=== PATIENT | female | born 1995 | race Caucasian/White ===

== ENCOUNTER 2023-07-29 19:05 | Inpatient (IN) | payer OTHER, SELFPAY ==
[2023-07-29 19:29] VITALS: PULSE 117; O2SAT 100
[2023-07-29 19:30] VITALS: BP 135/87; PULSE 103; RESP 18; TEMP 36.4
[2023-07-29 19:42] VITALS: BMI 40.8
[2023-07-29] MEDS: 0.9% Saline Lock 10 ML Syringe IV (20:05)
[2023-07-29 20:30] LABS: Absolute Lymphocyte Count 2.54 X10^3/uL (0.83-4.51); Absolute Neutrophil Count 8.6 X10^3/uL (2.0-7.7); Basophil# 0.05 X10^3/uL; Basophil% 0.4 % (0-1); Eosinophil# 0.27 X10^3/uL; Eosinophils% 2.1 % (0-5); Hematocrit 31.9 % (37-47); Hemoglobin 10.2 g/dL (12.0-15.0); Lymphocyte # 2.54 X10^3/ul (0.83-4.51); Lymphocyte % 19.8 % (19-41); Mean Corpuscular Hgb 27.6 pg (27.0-32.0); Mean Corpuscular Volume 86.4 fL (81-99); Mean Platelet Vol. 11.5 fl (6.2-12.0); Monocyte# 1.24 X10^3/uL; Monocyte% 9.7 % (0-10); NRBC Flagged by Analyzer 0 % (0-5); Neutrophil # 8.61 X10^3/uL (2.7-7.7); Neutrophil % 67.3 % (47-70); Platelet Count 296 K/mm3 (150-450); RBC Distribution Width CV 13.6 % (11.6-14.6); RBC Distribution Width SD 42.3 fl (35.1-43.9); Red Blood Count 3.69 M/mm3 (4.2-5.4); White Blood Count 12.8 K/mm3 (4.4-11.0)
[2023-07-29] MEDS: miSOPROStol 25 MCG TABLET PO (20:34)
[2023-07-29 21:01] LABS: Syphilis Antibodies Non-reactive
--- NOTE | 2023-07-29 21:06 | PCM.HP.OB ---
HPI - General General Date of Admission: 07/29/23 HPI Narrative DIAZ NANCE, is a 27 F who presents for elective induction of labor. Maternal Data Information VALENCIA Calculator Estimated Delivery Date Method Current WG Current Estimate 08/06/23 Manual 38w 6d PFSH PFSH Medical History (Updated 07/29/23 @ 21:10 by Antoinette Bell CNM) Anxiety Asthma Depression Panic disorder Rheumatoid arthritis Home Medications albuterol sulfate 90 mcg/actuation aerosol inhaler 1 puff inhalation asthma 07/29/23 [History Last Taken Unknown] aspirin 81 mg chewable tablet 2 tab PO DAILY 07/29/23 [History Last Taken 07/28/23] budesonide-formoterol HFA 160 mcg-4.5 mcg/actuation aerosol inhaler 2 puff inhalation BID asthma 07/29/23 [History Last Taken 07/29/23] cetirizine 10 mg tablet (24Hour Allergy) 10 mg PO DAILY PRN allergies 07/29/23 [History Last Taken 07/28/23] pantoprazole 40 mg tablet,delayed release 40 mg PO DAILY acid reflux 07/29/23 [History Last Taken 07/28/23] Allergy/AdvReac Type Severity Reaction Status Date / Time Penicillins Allergy Mild Swelling Verified 07/29/23 19:49 Surgical History (Updated 07/29/23 @ 20:41 by Geno Coronado) Hx of cholecystectomy Social History Smoking Status: Never smoker History Elective abortions Hx Para 0 Spontaneous abortions Hx # Term Pregnancies Ectopic pregnancies Hx # Pregnancies Multiple births # of living children NST FHR Rate Baby A Baseline: 140 Variability:: Moderate Accelerations:: 15 x 15 Decelerations:: None NST Reactive:: Yes FHR Category:: Category I Uterine Activity:: Irritability ROS Eyes Eyes: Denies blurry vision, change in vision or spots in vision ENT HEENT: Denies dizziness or headache(s) Cardiovascular Cardiovascular: Denies abdominal pain, chest pain or dyspnea Respiratory/Chest Respiratory/Chest: Denies cough, dyspnea, shortness of breath at rest or shortness of breath with exertion Gastrointestinal Gastrointestinal: Denies abdominal pain, diarrhea or vomiting Genitourinary Genitourinary: Denies change in urinary stream, difficulty urinating or dysuria Musculoskeletal Musculoskeletal: Reports none Integumentary Integumentary: Denies rash Neurologic Neurologic: Denies dizziness, headache(s), memory loss or weakness Psychiatric Psychiatric: Reports none Vital Signs Vital Signs Vital Signs: 07/29/23 19:30 07/29/23 19:30 07/29/23 19:29 Temperature Temperature Source Pulse Rate 103 H 117 H Respiratory Rate Blood Pressure 135/87 H BP Systolic 135 BP Diastolic 87 Pulse Ox 07/29/23 19:29 07/29/23 19:30 07/29/23 19:30 Temperature Temperature Source Temporal Pulse Rate Respiratory Rate 18 Blood Pressure BP Systolic BP Diastolic Pulse Ox 100 07/29/23 19:30 Temperature 97.6 F L Temperature Source Pulse Rate Respiratory Rate Blood Pressure BP Systolic BP Diastolic Pulse Ox Weight Weight: 230 lb 12.8 oz Body Mass Index (BMI) 40.8 Physical Exam Const alert, oriented x3 and no apparent distress General Appearance: cooperative Orientation / Consciousness: awake Exam Limitations: no limitations HEENT normocephalic Head and Scalp: normal to inspection Eyes General Eye: normal appearance of both eyes Neck full ROM and no lymphadenopathy Lymph Lymphatic: no lymphadenopathy noted Chest inspection of chest normal Resp normal respiratory effort, normal air movement and clear to auscultation bilaterally Effort and Inspection: able to speak in complete sentences and symmetric chest movement Cardio regular rate and regular rhythm GI normal to inspection, nondistended, normoactive bowel sounds Back/Spine normal ROM Extremity full ROM and no calf tenderness Skin no rashes or lesions noted General Skin Exam: no breakdown Neuro oriented x3 and CN's II-XII intact bilaterally Psych mental status grossly normal and thought process normal Labs Labs Labs: Blood Type Pending Antibody Screen Pending Hct 31.9 % (37-47) L Hgb 10.2 g/dL (12.0-15.0) L Syphilis Total Ab Non-reactive GBS POSITIVE Assessment & Plan (1) Encounter for elective induction of labor: (2) 39 weeks gestation of : (3) Asthma affecting in third trimester: (4) Penicillin allergy: (5) Positive GBS test: (6) Obesity affecting : (7) Acid reflux: PLAN: Plan Admit to labor and delivery Routine labs Start IV and run fluids per orders GBS positive with confirmed PCN allergy- start Vancomycin IV Cytotec 25 mcg PO every 4 hours with maximum of 6 doses Anticipate placement of ayala bulb in AM Dr. Dillon notified of admission and is collaborating physician
[2023-07-29] MEDS: CHLORHEXIDINE GLUC 2% CLOTH 1 EACH TOWELETTE TOPICAL (22:24)
[2023-07-29] MEDS: BUDESONIDE/FORMOTEROL 160/4.5 1 PUFF INHALER 2 PUFF INHALATION (22:24)
[2023-07-30] VITALS (20 sets, daily range): BP systolic 108–130; BP diastolic 57–78; PULSE 82–109; RESP 16–20; TEMP 36.3–37.3; O2SAT 97–100
[2023-07-30] MEDS: miSOPROStol 25 MCG TABLET PO ×2 (00:36→04:40)
[2023-07-30] MEDS: 0.9% Normal Saline Single 100 ML IV.SOLN. INTRA-UTER (06:54)
--- NOTE | 2023-07-30 07:16 | PN.OBGYN_ITS ---
Subjective Subjective Patient seen at bedside. Slept off and on last night. Denies any pain. Objective Data Objective Data Vital Signs: Vital Signs Temp Pulse Resp BP Pulse Ox 98.5 F 85 16 119/65 99 07/30/23 04:32 07/30/23 04:32 07/30/23 04:32 07/30/23 04:32 07/30/23 04:32 Weight: 230 lb 12.8 oz Body Mass Index (BMI) 40.8 Intake & Output: Intake and Output for Last 24 Hours 07/28/23 07/29/23 07/30/23 23:59 23:59 23:59 Intake Total 100 / 300 200 / 200 Output Total 300 / 800 1250 / 1250 Balance -200 / -500 -1050 / -1050 Lab / Micro Data 07/29/23 20:05 Labs: Laboratory Results - last 24 hr 07/29/23 20:00: Blood Type A POSITIVE, Antibody Screen NEGATIVE 07/29/23 20:05: WBC 12.8 H, RBC 3.69 L, Hgb 10.2 L, Hct 31.9 L, MCV 86.4, MCH 27.6, MCHC 32.0, RDW Std Deviation 42.3, RDW Coeff of Kiarra 13.6, Plt Count 296, MPV 11.5, Immature Gran % (Auto) 0.700, Neut % (Auto) 67.3, Lymph % (Auto) 19.8, [place] % (Auto) 9.7, Eos % (Auto) 2.1, Baso % (Auto) 0.4, Absolute Neuts (auto) 8.6 H, Absolute Lymphs (auto) 2.54, Nucleated RBC % 0, Syphilis Total Ab Non- reactive NST FHR Rate Baby A Baseline: 135 Variability:: Moderate Accelerations:: 15 x 15 Decelerations:: None NST Reactive:: Yes FHR Category:: Category I Uterine Activity:: Irregular Assessment & Plan (1) 39 weeks gestation of : (2) Encounter for elective induction of labor: (3) Asthma affecting in third trimester: (4) Penicillin allergy: (5) Positive GBS test: (6) Obesity affecting : PLAN: Plan CE /-3 Cat. 1 tracing/ NST reactive- [place] Conner bulb placed and balloon filled with 30 cc N/S Next dose of Cytotec 25 mcg PO due in 2 hours- will reevaluate Eat light breakfast Pain medications if indicated
[2023-07-30] MEDS: 0.9% Saline Lock 10 ML Syringe IV (08:08)
[2023-07-30] MEDS: Vancomycin HCl 2,000 MG in 0.9% Normal Saline (500mL Bag) 500 ML 250 MG IV ×2 (08:08→16:11)
[2023-07-30] MEDS: BUDESONIDE/FORMOTEROL 160/4.5 1 PUFF INHALER 2 PUFF INHALATION ×2 (08:23→22:26)
[2023-07-30] MEDS: Oxytocin 15 Units/NS 250ml 15 UNITS/250 ML IV.SOLN 2 UNITS IV (09:10)
[2023-07-30] MEDS: CHLORHEXIDINE GLUC 2% CLOTH 1 EACH TOWELETTE TOPICAL ×2 (09:10→20:54)
[2023-07-30] MEDS: Lactated Ringers 1,000 ML 50 ML IV (10:18)
[2023-07-30] MEDS: LACTATED RINGERS 500 ML 999 ML IV (11:25)
--- NOTE | 2023-07-30 18:16 | PN.OBGYN_ITS ---
Subjective Subjective Resting comfortably in bed. Partner at bedside. Objective Data Objective Data Vital Signs: Vital Signs Temp Pulse Resp BP Pulse Ox 98.3 F 100 16 116/66 99 07/30/23 17:06 07/30/23 17:06 07/30/23 17:06 07/30/23 17:06 07/30/23 17:06 Weight: 230 lb 12.8 oz Body Mass Index (BMI) 40.8 Intake & Output: Intake and Output for Last 24 Hours 07/28/23 07/29/23 07/30/23 23:59 23:59 23:59 Intake Total 100 / 300 1568.93 / 1568.93 Output Total 300 / 800 2700 / 2700 Balance -200 / -500 -1131.07 / -1131.07 Lab / Micro Data 07/29/23 20:05 Labs: Laboratory Results - last 24 hr 07/29/23 20:00: Blood Type A POSITIVE, Antibody Screen NEGATIVE 07/29/23 20:05: WBC 12.8 H, RBC 3.69 L, Hgb 10.2 L, Hct 31.9 L, MCV 86.4, MCH 27.6, MCHC 32.0, RDW Std Deviation 42.3, RDW Coeff of Kiarra 13.6, Plt Count 296, MPV 11.5, Immature Gran % (Auto) 0.700, Neut % (Auto) 67.3, Lymph % (Auto) 19.8, [place] % (Auto) 9.7, Eos % (Auto) 2.1, Baso % (Auto) 0.4, Absolute Neuts (auto) 8.6 H, Absolute Lymphs (auto) 2.54, Nucleated RBC % 0, Syphilis Total Ab Non- reactive Physical Exam Manual OB Exam: presentation cephalic, dilated 4.5 cm, effaced 60% and station -2 Amniotic Fluid: clear amniotic fluid NST FHR Rate Baby A Baseline: 145 Variability:: Moderate Accelerations:: 15 x 15 Decelerations:: Late (after cervical exam) and Variable FHR Category:: Category II Uterine Activity:: Every 2-4 minutes, mild to moderate Assessment & Plan (1) Obesity affecting : (2) 39 weeks gestation of : (3) Encounter for elective induction of labor: PLAN: Plan 1) Category 2 FHT, continue to monitor 2) AROM after indepth discussion, all questions answered and tolerated well 3) Continue Pitocin per policy 4) Continue GBS prophylaxis 5) collaborative physician, notified of patient status and of above assessment and plan
[2023-07-30] MEDS: Ondansetron 4 MG/2 ML Vial IV (22:24)
[2023-07-31] VITALS (51 sets, daily range): BP systolic 90–145; BP diastolic 46–92; PULSE 87–180; RESP 16–20; TEMP 36.3–37.4; O2SAT 72–100
[2023-07-31] MEDS: LACTATED RINGERS 500 ML 999 ML IV ×3 (00:25→08:05)
[2023-07-31] MEDS: Vancomycin HCl 2,000 MG in 0.9% Normal Saline (500mL Bag) 500 ML 250 MG IV (00:58)
[2023-07-31] MEDS: fentaNYL-bupivacaine (epidural) 100 ML BAG EPIDURAL (02:30)
--- NOTE | 2023-07-31 03:00 | PCM.PN.OB ---
Subjective Subjective Resting in bed sleeping. at bedside. Comfortable with epidural Objective Data Objective Data Vital Signs: Vital Signs Temp Pulse Resp BP Pulse Ox 98.7 F 95 18 117/58 L 96 07/31/23 02:44 07/31/23 02:55 07/31/23 02:48 07/31/23 02:53 07/31/23 02:55 Weight: 230 lb 12.8 oz Body Mass Index (BMI) 40.8 Intake & Output: Intake and Output for Last 24 Hours 07/29/23 07/30/23 07/31/23 23:59 23:59 23:59 Intake Total 100 / 300 2185.06 / 2185.06 877.35 / 877.35 Output Total 300 / 800 4300 / 4300 325 / 325 Balance -200 / -500 -2114.94 / -2114.94 552.35 / 552.35 Lab / Micro Data 07/29/23 20:05 Physical Exam Manual OB Exam: dilated 4.5, effaced 70 and station -1 NST FHR Rate Baby A Baseline: 145 Accelerations:: 15 x 15 Decelerations:: None FHR Category:: Category I Uterine Activity:: every 2-3 minutes, moderate Assessment & Plan (1) Encounter for elective induction of labor: PLAN: Plan 1) Labor protracted. Epidural for pain management. Will recheck 1 hour after epidural placement. 2) Category 1 FHT 3) Pitocin decreased by half due to tachysystole. 4) Positional changes 5) Continue with active management
--- NOTE | 2023-07-31 05:33 | PCM.PN.OB ---
Subjective Subjective Resting in bed, awake. Comfortable with epidural. at bedside. Objective Data Objective Data Vital Signs: Vital Signs Temp Pulse Resp BP Pulse Ox 97.9 F 109 H 18 106/50 L 99 07/31/23 04:23 07/31/23 04:23 07/31/23 04:23 07/31/23 04:23 07/31/23 04:23 Weight: 230 lb 12.8 oz Body Mass Index (BMI) 40.8 Intake & Output: Intake and Output for Last 24 Hours 07/29/23 07/30/23 07/31/23 23:59 23:59 23:59 Intake Total 100 / 300 2185.06 / 2185.06 1897.16 / 1897.16 Output Total 300 / 800 4300 / 4300 725 / 725 Balance -200 / -500 -2114.94 / -2114.94 1172.16 / 1172.16 Lab / Micro Data 07/29/23 20:05 Physical Exam Manual OB Exam: presentation cephalic, dilated 5, effaced 80, station -1 and other caput NST FHR Rate Baby A Baseline: 145 Variability:: Moderate Accelerations:: 15 x 15 Decelerations:: None FHR Category:: Category I Uterine Activity:: every 3-4 minutes. MVU 100 Assessment & Plan (1) Encounter for elective induction of labor: PLAN: Plan 1) Inadequate contractions with limited cervical change. Discussed with patient Rupture of membranes with inadequate contractions and no change in 6 hours. Discussed option and recommendation for section at this time. She declines and would like to continue labor and reassess. 2) Pitocin break and then 1gram of tums. Restart pitocin and see if improvement in contractions. 3) Epidural for pain management effective 4) collaborative physician and reviewed above assessment, plan, and patient status. Agrees with plan at this time. 5) Continue with vancomycin for GBS prophylaxis.
[2023-07-31] MEDS: Lactated Ringers 1,000 ML 200 ML IV (05:38)
[2023-07-31] MEDS: Calcium Carbonate 500 MG Tablet 1000 MG PO (06:36)
[2023-07-31] MEDS: Oxytocin 15 Units/NS 250ml 15 UNITS/250 ML IV.SOLN 6 UNITS IV (07:48)
[2023-07-31] MEDS: Acetaminophen 500 MG Tablet PO (08:28)
--- NOTE | 2023-07-31 08:45 | PCM.PN.OB ---
Subjective Subjective Elective induction on 07/28. S/p Conner bulb, Cytotec and Pitocin. Has not made cervical change since yesterday. Very high station. Cat I fhr. Mild tachycardia but reactive. And responds to IV fluid bolus. Discussed with patient. Primary c/s for failure to progress. Reviewed r/b/a. All questions answered. Patient agreeable. PCN allergy. Vague reaction but involves hives and swelling. Objective Data Objective Data Vital Signs: Vital Signs Temp Pulse Resp BP Pulse Ox 99.4 F H 109 H 16 107/53 L 98 07/31/23 08:08 07/31/23 08:08 07/31/23 08:08 07/31/23 08:08 07/31/23 08:08 Weight: 104.689 kg Body Mass Index (BMI) 40.8 Intake & Output: Intake and Output for Last 24 Hours 07/29/23 07/30/23 07/31/23 23:59 23:59 23:59 Intake Total 100 / 300 2185.06 / 2185.06 2205.99 / 2205.99 Output Total 300 / 800 4300 / 4300 725 / 725 Balance -200 / -500 -2114.94 / -2114.94 1480.99 / 1480.99 Lab / Micro Data 07/29/23 20:05 Physical Exam Const alert and oriented x3 General Appearance: cooperative and comfortable HEENT normocephalic and head/scalp atraumatic Resp normal respiratory effort Manual OB Exam: dilated 4, effaced 75 and station -3 NST FHR Rate Baby A Baseline: 160 Variability:: Moderate Accelerations:: 15 x 15 Decelerations:: None NST Reactive:: Yes Assessment & Plan (1) 39 weeks gestation of : (2) Encounter for elective induction of labor: (3) Failure to progress in first stage of labor: PLAN: Primary
[2023-07-31] MEDS: BUDESONIDE/FORMOTEROL 160/4.5 1 PUFF INHALER 2 PUFF INHALATION ×2 (08:48→21:26)
[2023-07-31] MEDS: Ondansetron 4 MG/2 ML Vial IV ×2 (08:54→16:08)
[2023-07-31] MEDS: Sodium Citrate/Citric Acid 30 ML UDC PO (08:54)
[2023-07-31] MEDS: Clindamycin 900 MG/50 ML BAG 75 MG IV (09:12)
[2023-07-31] MEDS: Gentamicin IV 260 MG in Dextrose 5%-Water (50mL Bag) 50 ML 100 MG IVPB (09:30)
[2023-07-31] MEDS: Azithromycin 500 MG in Dextrose 5%-Water (250mL Bag) 250 ML 250 MG IV (10:00)
--- NOTE | 2023-07-31 10:05 | OP.PCM_ITS ---
Assessment & Plan (1) Failure to progress in first stage of labor: Maternal Data Information VALENCIA Calculator Estimated Delivery Date Method Current WG Current Estimate 08/06/23 Manual 39w 1d Final VALENCIA: 08/06/23 Gestational age: 39+1 Details Operative Information Date of Procedure: 07/31/23 Pre-Operative Diagnosis: Failure to progress term Post-Operative Diagnosis: Failure to progress Indications for : Failure to Progress Indications Narrative: Elective induction of labor. Conner bulb, Cytotec and Pitocin but did not progress past 4 cm Classification: ADDIE Procedure Type: low transverse feed mill lab technician #1: Nicko Silverman Type of Anesthesia: Epidural Anesthesiologist: Jl Mauricio Antibiotic Given: Clindamycin 600mg IV x1 and Gentamicin 1.5mg/kg IV x1 and Zithromax 500 mg/5 mL X1 Drain: Conner to straight drain Estimated Blood Loss: 300 cc Procedure Start Time: 09:28 Procedure Stop Time: 10:04 Time of Delivery: 09:35 Findings Description of Procedure: Patient taken to the OR with epidural in place. She was placed in dorsal supine position with a leftward tilt. A Conner was placed. She was prepped and draped in a sterile fashion. Anesthesia was verified with an Allis clamp. A Pfannenstiel incision was made with a scalp and carried down to the underlying fascia with the Bovie. The fascia was incised and extended laterally with scissors. The fascia was dissected off the muscles and the muscles divided in the midline. The peritoneum was entered bluntly. A bladder blade was placed and a bladder flap then created. A low transverse incision was made in the uterus and extended laterally. The head was elevated and delivered without difficulty. The cried on delivery. Delayed cord clamping was performed and the infant handed to the OR staff. The placenta was removed with gentle traction. The uterus was exteriorized and cleared of all clot and debris. The incision was repaired with 0-Vicryl x 2. The uterus was returned to the abdomen. The gutters cleared of clot and debris. The peritoneum was closed with 2-0 Monocryl. The fascia was closed with 0-Vicryl. The incision was irrigated. The sub-q was reapproximated with Monocryl and the skin closed with 4-Vicryl. All sponge, lap and instrument counts were correct. Presentation: Positive for Vertex Amniotic Membrane Rupture Type: Artificial Amniotic Fluid Description: Clear Placenta Disposition: [facility] Cord Vessel Description: 3 Vessels Cord Entanglement: None Infant A Gender: Female (1 minute): 9 (5 minute): 9 Delayed Cord Clamping: Yes Complications Risks of Surgery Discussed w/Patient: Bleeding, Anesthesia Risks, Infection and Injury to surrounding structure(s) including bowel and bladder
[2023-07-31] MEDS: Oxytocin 15 Units/NS 250ml 15 UNITS/250 ML IV.SOLN 83 UNITS IV (11:45)
[2023-07-31] MEDS: Lactated Ringers 1,000 ML 100 ML IV (12:10)
[2023-07-31] MEDS: Ketorolac 30 MG/ML Syringe IV ×2 (12:59→18:14)
[2023-07-31] MEDS: 0.9% Saline Lock 10 ML Syringe IV ×3 (12:59→18:15)
--- NOTE | 2023-07-31 13:12 | NURSING ---
Epidural catheter removed at this time per policy with blue tip intact.
[2023-07-31] MEDS: Acetaminophen 500 MG Tablet 1000 MG PO ×2 (14:49→20:12)
[2023-07-31] MEDS: Enoxaparin 40 MG/0.4 ML Syringe SC (21:26)
[2023-08-01] VITALS (7 sets, daily range): BP systolic 103–115; BP diastolic 63–74; PULSE 78–95; RESP 16–20; TEMP 36.1–36.9; O2SAT 97–100
[2023-08-01] MEDS: Ketorolac 30 MG/ML Syringe IV ×2 (00:47→05:34)
[2023-08-01] MEDS: 0.9% Saline Lock 10 ML Syringe IV ×2 (00:47→05:35)
[2023-08-01] MEDS: Acetaminophen 500 MG Tablet 1000 MG PO ×4 (02:29→21:10)
--- NOTE | 2023-08-01 02:31 | NURSING ---
RN notes pt had pulse oximeter on incorrectly. Parameters for alarm changed from 90% to <95%.
[2023-08-01 05:56] LABS: Hematocrit 21.7 % (37-47); Hemoglobin 6.9 g/dL (12.0-15.0); Mean Corp Hgb Conc 31.8 g/dL (32-36); Mean Corpuscular Hgb 27.3 pg (27.0-32.0); Mean Corpuscular Volume 85.8 fL (81-99); Platelet Count 211 K/mm3 (150-450); RBC Distribution Width SD 43.6 fl (35.1-43.9); Red Blood Count 2.53 M/mm3 (4.2-5.4); White Blood Count 12.2 K/mm3 (4.4-11.0)
[2023-08-01] MEDS: Sodium Ferric Gluconat 250 MG in 0.9% Normal Saline 250 ML 135 MG IV (06:52)
[2023-08-01] MEDS: Senna/Docusate Sodium 1 Tablet PO (09:14)
[2023-08-01] MEDS: Enoxaparin 40 MG/0.4 ML Syringe SC ×2 (09:14→22:06)
[2023-08-01] MEDS: BUDESONIDE/FORMOTEROL 160/4.5 1 PUFF INHALER 2 PUFF INHALATION ×2 (09:14→21:10)
[2023-08-01] MEDS: Ibuprofen 600 MG Tablet PO ×3 (11:34→23:56)
--- NOTE | 2023-08-01 14:03 | CASEMGMT ---
Social Work Assessment Labor and Delivery Unit Patient Address:[address] [place], [place] [id number] Phone number: [phone] Date of Referral: 07/29/23 Time of Referral:? 2043 Referred By: Antoinette Bell Date of Intervention: ??08/01/23 Time of Intervention:? 1200 Reason for Referral:? anxiety, depression, step parent with drug/ alcohol problem Sw completed chart review and acknowledges social work consult. Sw presented to bedside and introduced self to mother of baby (MOB- Gina) and father of baby (FOB- Stone). Sw explained reason for sw involvement and role during hospitalization. Sw completed psychosocial assessment and asked MOB to complete [place] Depression Scale. FOB left room momentarily at which point sw assessed for safety. History obtained from: medical records, MOB and FOB Household composition: Currently residing in the family home is MOB, FOTulio and now baby when ready for dc. Parents deny any issues or concerns with their housing at this time. Patient's parent/guardian status:? ?PAOLA states that she and FOB met while attending college together at [employer]. PAOLA states that they have been together for 8 year. While meeting with privately, she denies domestic violence or intimate partner violence. Medical History: ?PAOLA is 27 year old female who is 1, para 0- now 1 following labor and delivery of . PAOLA received routine care during with [facility]. PAOLA presented to hospital on 07/29/23 in labor and ended up requiring on 07/31/23 at 38 weeks gestation. Baby girl, named Arleen Mir, was born weighing 8lb 5oz and her apgars were 9 and 9 at one and five minutes of life, respectfully. PAOLA states that she is breast feeding and this is going okay, she has plans to follow up with outpatient . PAOLA states that baby will be followed by Dr. Tafoya for pediatrics. Educational Status:? Both parents graduated high school and obtained Bachelor's degrees. No concerns with reading, learning or comprehension. Financial Status: Both parents are gainfully employed outside of the home. 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 Infant Supplies:?? Parents have obtained all necessary baby supplies, including: car seat, safe sleep space, clothes, diapers and wipes. Childcare/Caregiver(s):?MOB will be the primary caregiver to baby along with FOB when he is not at work. Transportation:?? No transportation barriers, both parents have their drivers license and reliable means of transportation. Programs/Agencies Involved: ???Parents deny any linkage to community resources that assist them financially. Children Services/Legal Issues:?No prior involvement, no issues or concerns warranting referral to be made at this time. Behavioral Health Issues: ??Mental Health History:??FOB denies mental health history. MOB states that she has been diagnosed with anxiety, depression and does have history of panic attacks. PAOLA reports that her mental health symptoms started when she was in college. MOB states that while in college she was connected to counseling supports and was temporarily prescribed medications. MOB states that she feels as though she has done really well managing her mental health throughout her . MOB states that she is aware and familiar with signs and symptoms of baby blues and depression and anxiety to be on the lookout for. PAOLA completed [place] Depression Scale and her score was 4. Sw provided education and support to MOB. ? Substance Use History:?MOB denies substance use prior to and during . ? Family History:??MOB states that her step father is an alcoholic and is not involved. ??? Drug Screens: ??No drug screens observed during chart review. Family/Social Stressors:?Parents deny any issues, concerns or stressors at this time. Support Systems: MOB identifies that her mom and her sister are her biggest supports at this time, along with FOB. Depression/Shaken Baby/Safe Sleeping:? Sw educated parents regarding signs and symptoms of baby blues and depression and anxiety. MOB and FOB expressed understanding. FOB stated that he knows he would be able to recognize a change in MOB if she were to struggle. FOB states that he would know how to help and support MOB. Sw educated parents on shaken baby prevention and ABCs of safe sleep. ASSESSMENT:? MOB and baby admitted following labor and delivery of . Both parents extremely talkative and receptive to meeting with sw. Parents made and maintained eye contact during psychosocial assessment. Parents observed to provide loving and appropriate hands on care to . FOB attentive to MOB and her needs following delivery. Parents have obtained all necessary baby supplies and have natural supports in place. PLAN:? MOB and baby to be discharged when medically ready. ?No other services requested or indicated. Zhao Patel, CRIBBER, [employer]
[2023-08-01 17:39] LABS: Hematocrit 22.9 % (37-47); Hemoglobin 7.2 g/dL (12.0-15.0); Mean Corp Hgb Conc 31.4 g/dL (32-36); Mean Corpuscular Hgb 26.8 pg (27.0-32.0); Mean Corpuscular Volume 85.1 fL (81-99); Mean Platelet Vol. 11.2 fl (6.2-12.0); Platelet Count 259 K/mm3 (150-450); RBC Distribution Width CV 14.2 % (11.6-14.6); RBC Distribution Width SD 43.6 fl (35.1-43.9); Red Blood Count 2.69 M/mm3 (4.2-5.4); White Blood Count 11.8 K/mm3 (4.4-11.0)
[2023-08-02] MEDS: Acetaminophen 500 MG Tablet 1000 MG PO ×2 (02:32→08:45)
[2023-08-02 02:43] VITALS: BP 109/70; PULSE 86; RESP 18; TEMP 36.3; O2SAT 100
--- NOTE | 2023-08-02 03:16 | NURSING ---
This RN at bedside discussing importance of feeding every 2-3 hours at least as well as on demand. Patient mentioned how is eating every hour and acting like they are hungry but they really aren't. She will root around and watch to latch and then will fall asleep. She doesn't actually want it. We are going to have to just leave her in the crib to cry because we need to sleep. This RN explained cluster feeding and how it is normal and good for MOB milk supply. This RN offered support and advice on how to take turns at night infant and then fob can rock while mob sleeps and switch off. MOB reports well if she is feeding so often and not actually wanting it then she just needs to lay in the crib and scream. My sleep is more important right now. I have only slept 10 hours since sunday. This RN reinforced importance of cluster feeding and how it is normal and common for infants to eat so often and in such short spurts. Patients stance remains unchanged on multiple occasions of reinforcement.
[2023-08-02] MEDS: Ibuprofen 600 MG Tablet PO ×2 (05:24→11:59)
[2023-08-02] MEDS: 0.9% Saline Lock 10 ML Syringe IV (05:35)
[2023-08-02 05:57] LABS: Absolute Lymphocyte Count 2.31 X10^3/uL (0.83-4.51); Absolute Neutrophil Count 6.1 X10^3/uL (2.0-7.7); Basophil# 0.05 X10^3/uL; Basophil% 0.5 % (0-1); Eosinophil# 0.21 X10^3/uL; Eosinophils% 2.1 % (0-5); Hematocrit 22.9 % (37-47); Lymphocyte # 2.31 X10^3/ul (0.83-4.51); Lymphocyte % 23.5 % (19-41); Mean Corp Hgb Conc 30.6 g/dL (32-36); Mean Corpuscular Hgb 26.2 pg (27.0-32.0); Mean Corpuscular Volume 85.8 fL (81-99); Mean Platelet Vol. 10.9 fl (6.2-12.0); Monocyte# 1.07 X10^3/uL; Monocyte% 10.9 % (0-10); NRBC Flagged by Analyzer 0 % (0-5); Neutrophil # 6.09 X10^3/uL (2.7-7.7); Neutrophil % 61.9 % (47-70); Platelet Count 273 K/mm3 (150-450); RBC Distribution Width CV 14.2 % (11.6-14.6); RBC Distribution Width SD 43.8 fl (35.1-43.9); Red Blood Count 2.67 M/mm3 (4.2-5.4); White Blood Count 9.8 K/mm3 (4.4-11.0)
[2023-08-02 08:20] VITALS: BP 106/60; PULSE 88; RESP 15; TEMP 36.9
--- NOTE | 2023-08-02 08:42 | DS.PCM_ITS ---
Providers Date of Admission: 07/29/23 Primary Care Physician: Dr. Lg Stephenson MD Reason For Visit: PRIMAY Diagnosis Discharge Diagnosis (1) Failure to progress in first stage of labor: Status: Acute (2) delivery delivered: Status: Acute Code(s): O82 - Encounter for delivery without indication (3) Care and examination of lactating mother: Status: Acute Code(s): Z39.1 - Encounter for care and examination of lactating mother Plan POD 3 Primary C/S Pain control support D/C home with follow up in office next week Medications at Discharge Home Medications albuterol sulfate 90 mcg/actuation aerosol inhaler 1 puff inhalation asthma 07/29/23 aspirin 81 mg chewable tablet 2 tab PO DAILY 07/29/23 budesonide-formoterol HFA 160 mcg-4.5 mcg/actuation aerosol inhaler 2 puff inhalation BID asthma 07/29/23 cetirizine 10 mg tablet (24Hour Allergy) 10 mg PO DAILY PRN allergies 07/29/23 pantoprazole 40 mg tablet,delayed release 40 mg PO DAILY acid reflux 07/29/23 acetaminophen 500 mg tablet 1,000 mg (2 x 500 mg) PO Q6H #0 tabs 08/02/23 budesonide-formoterol HFA 160 mcg-4.5 mcg/actuation aerosol inhaler (Symbicort) 2 puff inhalation BID #0 grams 08/02/23 ibuprofen 600 mg tablet 600 mg PO Q6H #0 tabs 08/02/23 sennosides 8.6 mg-docusate sodium 50 mg tablet (Stool Softener-Stimulant Laxative) 1 - 2 tab PO DAILY #0 tabs 08/02/23 Physical Exam Narrative Patient seen at bedside. Pain is controlled. Ambulating and voiding without difficulty. Lochia is minimal. Dressing is dry and intact. Requesting discharge home today. Weight / BMI Weight Weight: 230 lb 12.8 oz Body Mass Index (BMI) 40.8 ABG / Lab / Microbiology Data 08/02/23 05:35 Laboratory: Laboratory Results - last 24 hr 08/01/23 17:25: WBC 11.8 H, RBC 2.69 L, Hgb 7.2 L, Hct 22.9 L, MCV 85.1, MCH 26 .8 L, MCHC 31.4 L, RDW Std Deviation 43.6, RDW Coeff of Kiarra 14.2, Plt Count 259, MPV 11.2 08/02/23 05:35: WBC 9.8, RBC 2.67 L, Hgb 7.0 L, Hct 22.9 L, MCV 85.8, MCH 26.2 L , MCHC 30.6 L, RDW Std Deviation 43.8, RDW Coeff of Kiarra 14.2, Plt Count 273, MPV 10.9, Immature Gran % (Auto) 1.100 H, Neut % (Auto) 61.9, Lymph % (Auto) 23.5, [place] % (Auto) 10.9 H, Eos % (Auto) 2.1, Baso % (Auto) 0.5, Absolute Neuts (auto) 6.1, Absolute Lymphs (auto) 2.31, Nucleated RBC % 0 D/C Instructions Discharge Diet: No restrictions May resume sexual activity in: 6-8 weeks Weight Bearing Status: Weight bearing as tolerated Lifting Restrictions: 20 lbs Call your doctor if your incision/area has: Continuous Slow Oozing, Increased Pain/ Swelling, Increased Redness, Foul Smelling Discharge and Swelling at the incision site Call your doctor if you observe: Fever of 101 or Higher, Inability to urinate, Using more than 1 pad per hour, Shortness of breath, Chest pain, Calf discomfort and Uncontrolled pain Remove Dressing in: 5 days Cleanse incision/area with: Soap & Water and Keep Dressing Clean & Dry Please Follow Up With: Antoinette Bell CNM When: 1 week in office for incision check or sooner if needed 6 weeks Meaningful Use Info Meaningful Use Diagnoses (Choose all that apply): None applicable Discharge Plan Admission Admit Date/Time: 07/29/23 19:05 Primary Reason for Your Visit: Labor and Delivery Attending Provider: Maida Manrique Primary Care Provider: Lg tSephenson Discharge Orders/Prescriptions Prescriptions: New acetaminophen 500 mg Tablet 1,000 mg PO Q6H Qty: 0 0RF sennosides-docusate sodium [Stool Softener-Stimulant Laxat] 8.6-50 mg Tablet 1 - 2 tab PO DAILY Qty: 0 0RF ibuprofen 600 mg Tablet 600 mg PO Q6H Qty: 0 0RF budesonide-formoterol [Symbicort] 160-4.5 mcg/actuation Hfa Aerosol Inhaler 2 puff inhalation BID Qty: 0 0RF Continued aspirin 81 mg tablet,chewable 2 tab PO DAILY pantoprazole 40 mg tablet,delayed release (DR/EC) 40 mg PO DAILY cetirizine [24Hour Allergy] 10 mg tablet 10 mg PO DAILY PRN (Reason: allergies) albuterol sulfate 90 mcg/actuation HFA aerosol inhaler 1 puff inhalation budesonide-formoterol 160-4.5 mcg/actuation HFA aerosol inhaler 2 puff inhalation BID Referrals / Follow Up: Antoinette Bell CNM [Med Staff - Adv Practice Prof] - Lg Stephenson MD [Primary Care Provider] - Disposition Disposition (needs filled in before D/C Order can be placed): Home, Self Care
[2023-08-02] MEDS: Senna/Docusate Sodium 1 Tablet PO (08:46)
[2023-08-02] MEDS: BUDESONIDE/FORMOTEROL 160/4.5 1 PUFF INHALER 2 PUFF INHALATION (08:46)
[2023-08-02] MEDS: Enoxaparin 40 MG/0.4 ML Syringe SC (11:59)
--- NOTE | 2023-08-07 13:29 | NURSING ---
Follow up phone call made Sunday08/06/2023. Patient states she is doing very well, bleeding is minimal and she is not really having any pain. Dressing on incision was removed on Sunday and incision looks good. States that her incision does not have any drainage or redness. Patient states that the is doing very well and gained 7 ounces since seen by on Sunday with the feeding plan set up by IB[facility]. Denies any difficulty with pumping or feeding . States she is feeling really good. patient states she loved her stay here at and all of the nurses were great. She loved Angela in and stated that she was so helpful.
== END 2023-08-02 12:30 | disposition home or self-care (01) | DRG 788 ==
PROVIDERS: Advanced Practice Midwife; Admitting Provider Obstetrics & Gynecology; PCP Student in an Organized Health Care Education/Training Program; Visit Provider Obstetrics & Gynecology
DX: O62.0 Primary inadequate contractions (principal); O99.214 Obesity complicating childbirth; J45.909 Unspecified asthma, uncomplicated; K21.9 Gastro-esophageal reflux disease without esophagitis; O99.62 Diseases of the digestive system complicating childbirth; Z79.82 Long term (current) use of aspirin; Z37.0 Single live birth; O99.824 Streptococcus B carrier state complicating childbirth; Z88.0 Allergy status to penicillin; Z3A.39 39 weeks gestation of pregnancy; O99.52 Diseases of the respiratory system complicating childbirth; O61.0 Failed medical induction of labor
CPT/HCPCS: 59025; 59050; 85025; 85027; 86780; 86850; 86900; 86901; 99221; J7040; J7050; J7120; A4216; G0378; J2405; J2916

== ENCOUNTER 2023-08-04 08:34 | Emergency (ER) | payer OTHER, SELFPAY ==
[2023-08-04 08:35] VITALS: BP 139/89; PULSE 101; RESP 16; TEMP 36.3; O2SAT 100; BMI 38.3
--- NOTE | 2023-08-04 09:08 | ED.RN ---
PT REPORTS THAT SHE IS CURRENTLY AND HAS AN APPT WITH THE RECORDS MANAGEMENT ANALYST THIS MORNING. NOTIFIED BY THIS RN THAT PT WAS PRESENT IN ED AND NEEDED SOME ASSISTANCE.
[2023-08-04 10:16] VITALS: BP 128/69; PULSE 100; RESP 18; TEMP 36.8; O2SAT 100
--- NOTE | 2023-08-04 10:24 | EDS_ITS ---
HPI HPI - Female History of Present Illness Chief Complaint: Vag Bleeding Narrative Narrative: 27-year-old female presenting with vaginal bleeding and clotting. Patient had performed 5 days ago patient after full-term delivery. Patient states her incision sites are healing well. She has no significant pain there. She does have some spotting noted today she had 1 golf ball sized clot. She was told that if she has any clots the size she could should come to the emergency room. She states she has not had a return to this. No significant vaginal bleeding. No fevers or chills. No nausea or vomiting. PFSH PFSH Medical History Anxiety Asthma Depression Liver lesion Panic disorder Rheumatoid arthritis Home Medications albuterol sulfate 90 mcg/actuation aerosol inhaler 1 puff inhalation asthma 07/29/23 [History Last Taken Unknown] aspirin 81 mg chewable tablet 2 tab PO DAILY 07/29/23 [History Last Taken 07/28/23] budesonide-formoterol HFA 160 mcg-4.5 mcg/actuation aerosol inhaler 2 puff inhalation BID asthma 07/29/23 [History Last Taken 07/29/23] cetirizine 10 mg tablet (24Hour Allergy) 10 mg PO DAILY PRN allergies 07/29/23 [History Last Taken 07/28/23] pantoprazole 40 mg tablet,delayed release 40 mg PO DAILY acid reflux 07/29/23 [History Last Taken 07/28/23] acetaminophen 500 mg tablet 1,000 mg (2 x 500 mg) PO Q6H #0 tabs 08/02/23 [Rx Last Taken Unknown] budesonide-formoterol HFA 160 mcg-4.5 mcg/actuation aerosol inhaler (Symbicort) 2 puff inhalation BID #0 grams 08/02/23 [Rx Last Taken Unknown] ibuprofen 600 mg tablet 600 mg PO Q6H #0 tabs 08/02/23 [Rx Last Taken Unknown] sennosides 8.6 mg-docusate sodium 50 mg tablet (Stool Softener-Stimulant Laxative) 1 - 2 tab PO DAILY #0 tabs 08/02/23 [Rx Last Taken Unknown] Allergy/AdvReac Type Severity Reaction Status Date / Time Penicillins Allergy Mild Swelling Verified 08/04/23 08:36 Surgical History Hx of cholecystectomy Social History Smoking Status: Never smoker ROS ROS ED Constitutional Constitutional ED: Denies chills, fever(s) or sweats Eyes Eyes: Denies blurry vision or change in vision ENT ENT ED: Denies ear pain or sore throat Cardiovascular Cardiovascular: Denies chest pain, palpitations or racing heartbeat Respiratory/Chest Respiratory/Chest: Denies cough, dyspnea or sputum Gastrointestinal Gastrointestinal: Denies abdominal pain, constipation, diarrhea, nausea or vomiting Genitourinary Genitourinary ED: Reports other Details: Vaginal bleeding ; Denies dysuria, hematuria or urinary frequency Musculoskeletal Musculoskeletal: Denies arthralgias, myalgias or neck pain Integumentary Denies abscess, Abrasions or rash Neurologic Neurologic: Denies headache(s), paresthesias or weakness Psychiatric Psychiatric: Denies anxiety, depression, suicidal ideation or suicidal thoughts Endocrine Endocrinology: Denies polydipsia or polyuria EXAM Physical Exam Const Vital Signs: 08/04/23 08:35 08/04/23 10:16 Temperature 97.4 F L 98.2 F Temperature Source Temporal Pulse Rate 101 H 100 Respiratory Rate 16 18 Blood Pressure 139/89 H 128/69 H Blood Pressure Mean 105 88 Pulse Ox 100 100 Oxygen Delivery Method Room Air Positive well nourished General Appearance ED: NAD; Negative for pallor HEENT Reports moist mucous membranes Eyes PERRL and EOMs intact bilaterally Chest Wall inspection of chest normal Resp normal respiratory effort and clear to auscultation bilaterally Cardio regular rate and regular rhythm GI soft to palpation and non-distended GI Narrative: Incision sites clean, dry, intact. Narrative: Pelvic exam deferred Back/Spine no CVA tenderness Neuro oriented x3 and CN's II-XII intact bilaterally Sensorium / Orientation: alert Psych mental status grossly normal Skin no rashes or lesions noted General Skin Exam: Negative for jaundice or pallor MDM MDM MDM Narrative Medical decision making narrative: Patient presenting with blood clotting she states that she had 1 large clot. She states she was told to come to the ER she had this. Currently she does not have any significant bleeding or pain. Vital signs are stable and she is afebrile. She is breast-feeding her child and states she feels comfortable at this point. I spoke with [facility] Jimmy who is on-call and she states the patient can follow-up with her as an outpatient and does not believe she needs any imaging. Impression: 1. bleeding Lab Data Attestation: I reviewed the patient's lab results. Discharge Plan Triage Chief Complaint: Vag Bleeding ED Provider: Randy Ledbetter Dx/Rx/DC Orders Clinical Impression: bleeding Instructions: Hemorrhage Prescriptions: No Action aspirin 81 mg tablet,chewable 2 tab PO DAILY pantoprazole 40 mg tablet,delayed release (DR/EC) 40 mg PO DAILY cetirizine [24Hour Allergy] 10 mg tablet 10 mg PO DAILY PRN (Reason: allergies) albuterol sulfate 90 mcg/actuation HFA aerosol inhaler 1 puff inhalation budesonide-formoterol 160-4.5 mcg/actuation HFA aerosol inhaler 2 puff inhalation BID acetaminophen 500 mg Tablet 1,000 mg PO Q6H Qty: 0 0RF sennosides-docusate sodium [Stool Softener-Stimulant Laxat] 8.6-50 mg Tablet 1 - 2 tab PO DAILY Qty: 0 0RF ibuprofen 600 mg Tablet 600 mg PO Q6H Qty: 0 0RF budesonide-formoterol [Symbicort] 160-4.5 mcg/actuation Hfa Aerosol Inhaler 2 puff inhalation BID Qty: 0 0RF Primary Care Provider: Lg Stephenson Referrals: Amy Marquez CNM [Med Staff - Adv Practice Prof] - As Needed Lg Stephenson MD [Primary Care Provider] - Disposition Disposition: Home, Self Care Discharge Date/Time: 08/04/23 10:18
== END 2023-08-04 10:18 | disposition home or self-care (01) ==
PROVIDERS: Emergency Provider Student in an Organized Health Care Education/Training Program; PCP Student in an Organized Health Care Education/Training Program; Visit Provider Student in an Organized Health Care Education/Training Program
DX: N93.9 Abnormal uterine and vaginal bleeding, unspecified (principal); J45.909 Unspecified asthma, uncomplicated; Z79.51 Long term (current) use of inhaled steroids; Z90.49 Acquired absence of other specified parts of digestive tract
CPT/HCPCS: 99282